=== PATIENT | female | born 1930 | race Hispanic/Latino ===

== ENCOUNTER → 2017-06-24 | Emergency (ER) | payer OTHER ==
[~2017-06-24] VITALS: Ht 147.3 cm; Wt 73.5 kg
== END | disposition home or self-care (01) ==
LOC: FSED 12:52
DX: S00.83XA Contusion of other part of head, initial encounter (principal); W06.XXXA Fall from bed, initial encounter; Y93.84 Activity, sleeping; Y92.003 Bedroom of unspecified non-institutional (private) residence as the place of occurrence of the external cause; E11.9 Type 2 diabetes mellitus without complications
CPT/HCPCS: 99282